=== PATIENT | female | born 1980 | race African-American/Black ===

== ENCOUNTER 2019-04-11 00:29 | Emergency (ER) | payer SELFPAY ==
[2019-04-11] MEDS: HYDROCODONE/APAP (10/325) TAB PO (01:32)
[2019-04-11] MEDS: ONDANSETRON (ODT) 4 MG TAB ODT (01:33)
== END 2019-04-11 04:07 | disposition home or self-care (01) ==
LOC: FTE 00:29
DX: S06.0X0A Concussion without loss of consciousness, initial encounter (principal); S16.1XXA Strain of muscle, fascia and tendon at neck level, initial encounter; S20.219A Contusion of unspecified front wall of thorax, initial encounter; V43.62XA Car passenger injured in collision with other type car in traffic accident, initial encounter
CPT/HCPCS: 70450; 71046; 72125; 81025; 99284-25